=== PATIENT | male | born 1965 | race Caucasian/White ===

== ENCOUNTER 2018-07-01 14:22 | Emergency (ER) | payer OTHER | END 2018-07-01 17:20 | disposition home or self-care (01) | LOC: M ED 14:22 | DX: S46.911A Strain of unspecified muscle, fascia and tendon at shoulder and upper arm level, right arm, initial encounter (principal); S60.212A Contusion of left wrist, initial encounter; V40.5XXA Car driver injured in collision with pedestrian or animal in traffic accident, initial encounter; Y92.410 Unspecified street and highway as the place of occurrence of the external cause; Y93.9 Activity, unspecified; Y99.9 Unspecified external cause status; E78.00 Pure hypercholesterolemia, unspecified; Z79.899 Other long term (current) drug therapy | CPT/HCPCS: 99283 ==

== ENCOUNTER 2025-01-15 09:45 | Outpatient (CLI) | payer OTHER ==
[~2025-01-15] VITALS: Ht 162.6 cm; Wt 88.2 kg
[~2025-01-15 09:45] MED LIST: ATOR1TAB21 PO; FLOM0.4C39 PO; HUMI40KI SC; MERC50TA2 PO; NS (Normal Saline) 0.9% 1,000 ML IV SCH; OMEP1CAP73 PO; mesalamine PO
[2025-01-15 09:50] VITALS: BP 139/72; O2SAT 95
[2025-01-15] MEDS: diphenhydrAMINE 25MG PO PRIOR TO INFUSION PO ONE (10:12)
[2025-01-15] MEDS: ACETAMINOPHEN 650MG PO PRIOR TO INFUSION PO ONE (10:13)
[2025-01-15] MEDS: inFLIXimab INJECTION 400 MG in NS 210 ML IV ONE (11:07)
[2025-01-15 11:33] VITALS: BP 153/82; O2SAT 96
[2025-01-15 12:00] VITALS: BP 159/83; O2SAT 98
[2025-01-15 13:00] VITALS: BP 163/81; O2SAT 97
[2025-01-15 13:30] VITALS: BP 127/76; O2SAT 96
== END 2025-01-15 13:30 ==
LOC: M INFU 09:45
PROVIDERS: ATTEND Student in an Organized Health Care Education/Training Program
DX: K50.90 Crohn's disease, unspecified, without complications (principal)
CPT/HCPCS: 96413; 96415; J1745

== ENCOUNTER 2025-01-29 09:17 | Outpatient (CLI) | payer OTHER ==
[~2025-01-29] VITALS: Ht 162.6 cm; Wt 86.3 kg
[2025-01-29 10:00] VITALS: BP 145/80; O2SAT 98
[2025-01-29] MEDS: ACETAMINOPHEN 650MG PO PRIOR TO INFUSION PO ONE (10:51)
[2025-01-29] MEDS: diphenhydrAMINE 25MG PO PRIOR TO INFUSION PO ONE (10:51)
[2025-01-29] MEDS: inFLIXimab INJECTION 400 MG in NS 210 ML IV ONE (10:52)
[2025-01-29 11:15] VITALS: BP 142/77; O2SAT 96
[2025-01-29 11:45] VITALS: BP 149/87; O2SAT 97
[2025-01-29 12:15] VITALS: BP 150/83; O2SAT 98
[2025-01-29 12:50] VITALS: BP 157/80; O2SAT 98
== END 2025-01-29 13:00 | disposition home or self-care (01) ==
LOC: M INFU 09:17
PROVIDERS: ATTEND Student in an Organized Health Care Education/Training Program
DX: K50.90 Crohn's disease, unspecified, without complications (principal)
CPT/HCPCS: 96413; 96415; J1745

== ENCOUNTER 2025-02-26 08:38 | Outpatient (CLI) | payer OTHER ==
[~2025-02-26] VITALS: Ht 162.6 cm; Wt 86.4 kg
[~2025-02-26 08:38] MED LIST changes: -FLOM0.4C39 PO; +TAMS-18 PO
[2025-02-26 09:00] VITALS: BP 159/73; O2SAT 97
[2025-02-26] MEDS: ACETAMINOPHEN 650MG PO PRIOR TO INFUSION PO ONE (09:05)
[2025-02-26] MEDS: diphenhydrAMINE 25MG PO PRIOR TO INFUSION PO ONE (09:05)
[2025-02-26] MEDS: inFLIXimab INJECTION 400 MG in NS 210 ML IV ONE (09:45)
[2025-02-26 10:30] VITALS: BP 145/76; O2SAT 96
[2025-02-26 11:20] VITALS: BP 147/73; O2SAT 96
[2025-02-26 11:50] VITALS: BP 131/72; O2SAT 95
== END 2025-02-26 11:50 | disposition home or self-care (01) ==
LOC: M INFU 08:38
PROVIDERS: ATTEND Student in an Organized Health Care Education/Training Program
DX: K50.90 Crohn's disease, unspecified, without complications (principal)
CPT/HCPCS: 96413; 96415; J1745

== ENCOUNTER 2025-04-23 07:44 | Outpatient (CLI) | payer OTHER ==
[~2025-04-23] VITALS: Ht 162.6 cm; Wt 88.6 kg
[~2025-04-23 07:44] MED LIST changes: -NS (Normal Saline) 0.9% 1,000 ML IV SCH
[2025-04-23] MEDS: ACETAMINOPHEN 650MG PO PRIOR TO INFUSION PO ONE (08:20)
[2025-04-23] MEDS: diphenhydrAMINE 25MG PO PRIOR TO INFUSION PO ONE (08:20)
[2025-04-23 08:28] VITALS: BP 138/74; TEMP 97.7; O2SAT 95
[2025-04-23] MEDS ORDERED: NS (Normal Saline) 0.9% 1,000 ML IV SCH (08:30)
[2025-04-23] MEDS: inFLIXimab INJECTION 400 MG in NS 210 ML IV ONE (09:04)
[2025-04-23 11:12] VITALS: BP 153/88; O2SAT 97
== END 2025-04-23 11:15 ==
LOC: M INFU 07:44
PROVIDERS: ATTEND Student in an Organized Health Care Education/Training Program
DX: K50.90 Crohn's disease, unspecified, without complications (principal)
CPT/HCPCS: 96413; 96415; J1745

== ENCOUNTER 2025-06-18 08:55 | Outpatient (CLI) | payer OTHER ==
[~2025-06-18] VITALS: Ht 162.6 cm; Wt 89.9 kg
[2025-06-18 09:30] VITALS: BP 155/77; O2SAT 96
[2025-06-18] MEDS ORDERED: NS (Normal Saline) 0.9% 1,000 ML IV SCH (09:30)
[2025-06-18] MEDS: diphenhydrAMINE 25MG PO PRIOR TO INFUSION PO ONE (09:39)
[2025-06-18] MEDS: ACETAMINOPHEN 650MG PO PRIOR TO INFUSION PO ONE (09:39)
[2025-06-18] MEDS: inFLIXimab INJECTION 400 MG in NS 210 ML IV ONE (10:04)
[2025-06-18 10:20] VITALS: BP 146/71; TEMP 97; O2SAT 94
[2025-06-18 11:05] VITALS: BP 157/76; O2SAT 100
== END 2025-06-18 11:20 ==
LOC: M INFU 08:55
PROVIDERS: ATTEND Student in an Organized Health Care Education/Training Program
DX: K50.90 Crohn's disease, unspecified, without complications (principal)
CPT/HCPCS: 96413; J1745

== ENCOUNTER 2025-08-13 08:38 | Outpatient (CLI) | payer OTHER ==
[~2025-08-13] VITALS: Ht 162.6 cm; Wt 91.4 kg
[2025-08-13] MEDS: diphenhydrAMINE 25MG IV PRIOR TO INFUSION IV ONE (09:02)
[2025-08-13] MEDS: ACETAMINOPHEN 650MG PO PRIOR TO INFUSION PO ONE (09:02)
[2025-08-13] MEDS ORDERED: NS (Normal Saline) 0.9% 1,000 ML IV SCH (09:30)
[2025-08-13] MEDS: inFLIXimab INJECTION 400 MG in NS 210 ML IV ONE (09:51)
[2025-08-13 11:05] VITALS: BP 143/69; O2SAT 96
== END 2025-08-13 11:05 | disposition home or self-care (01) ==
LOC: M INFU 08:38
PROVIDERS: ATTEND Nurse Practitioner Family
DX: K50.90 Crohn's disease, unspecified, without complications (principal)
CPT/HCPCS: 96375; 96413; J1200; J1745

== ENCOUNTER 2025-10-08 08:56 | Outpatient (CLI) | payer OTHER ==
[~2025-10-08] VITALS: Ht 162.6 cm; Wt 95.5 kg
[2025-10-08] MEDS ORDERED: NS (Normal Saline) 0.9% 1,000 ML IV SCH (09:00)
[2025-10-08 09:15] VITALS: BP 154/69; O2SAT 96
[2025-10-08] MEDS: ACETAMINOPHEN 650MG PO PRIOR TO INFUSION PO ONE (09:22)
[2025-10-08] MEDS: diphenhydrAMINE 25MG IV PRIOR TO INFUSION IV ONE (09:23)
[2025-10-08] MEDS: inFLIXimab INJECTION 400 MG in NS 210 ML IV ONE (10:27)
[2025-10-08 10:48] VITALS: BP 130/63; O2SAT 96
[2025-10-08 11:45] VITALS: BP 133/65; O2SAT 94
== END 2025-10-08 11:45 | disposition home or self-care (01) ==
LOC: M INFU 08:56
PROVIDERS: ATTEND Student in an Organized Health Care Education/Training Program
DX: K50.90 Crohn's disease, unspecified, without complications (principal)
CPT/HCPCS: 96375; 96413; 99195; J1200; J1745